=== PATIENT | male | born 1980 | race Caucasian/White ===

== ENCOUNTER 2017-06-30 18:14 | Emergency (ER) | payer BC ==
[~2017-06-30] VITALS: Ht 175.3 cm; Wt 90.7 kg
[2017-06-30] MEDS ORDERED: IBUPROFEN 600 MG TABLET PO ONE ×2 (18:30→18:33)
[2017-06-30] MEDS ORDERED: TDAP [DIPH/PERTUSSIS/TET] 0.5 ML VIAL IM ONE ×2 (18:30→18:33)
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
--- NOTE | 2017-06-30 18:35 | NUR ---
PATIENT MEDICATED PER MD ORDERS.
--- NOTE | 2017-06-30 18:45 | NUR ---
WOUND CARE RENDERED, TOLERATED WELL.
[2017-06-30 18:56] VITALS: BP 136/88
--- NOTE | 2017-06-30 18:58 | NUR ---
Patient discharged to home in stable condition. Written and verbal after care instructions given. Patient verbalizes understanding of instruction.
== END 2017-06-30 18:57 | disposition home or self-care (01) ==
LOC: ER 18:16
DX: S00.81XA Abrasion of other part of head, initial encounter (principal); S80.212A Abrasion, left knee, initial encounter; S80.211A Abrasion, right knee, initial encounter; S60.812A Abrasion of left wrist, initial encounter; S19.80XA Other specified injuries of unspecified part of neck, initial encounter; S60.811A Abrasion of right wrist, initial encounter; I10 Essential (primary) hypertension; Z88.0 Allergy status to penicillin; V49.49XA Driver injured in collision with other motor vehicles in traffic accident, initial encounter; Y93.89 Activity, other specified; Y92.413 State road as the place of occurrence of the external cause; Y99.8 Other external cause status
CPT/HCPCS: 90715; A4606; A6402; Z7610

== ENCOUNTER 2023-03-04 23:53 | Emergency (ER) | payer SELFPAY ==
[~2023-03-04] VITALS: Ht 175.3 cm; Wt 81.6 kg
[2023-03-05] MEDS ORDERED: KETOROLAC TROMETHAMINE INJ 30 MG/ML VIAL ONE (01:10)
[2023-03-05] MEDS ORDERED: KETOROLAC TROMETHAMINE INJ 60 MG/2 ML VIAL IM ONE (01:30)
[2023-03-05 01:32] VITALS: BP 154/104; TEMP 98.1; O2SAT 99
== END 2023-03-05 01:33 | disposition home or self-care (01) ==
LOC: ER 23:56
DX: M10.9 Gout, unspecified (principal); I10 Essential (primary) hypertension; Z88.0 Allergy status to penicillin
CPT/HCPCS: 99283; 96372; J1885